=== PATIENT | male | born 1975 | race Caucasian/White ===

== ENCOUNTER 2020-10-29 20:12 | Inpatient (IN) | payer BC ==
[~2020-10-29] VITALS: Ht 180.3 cm; Wt 90.9 kg
[2020-10-29 22:50] LABS: BASOPHILS % (AUTO) 1.3 % (0.0-2.0); EOSINOPHILS % (AUTO) 1.1 % (1.0-6.0); HEMATOCRIT 50.5 % (41-53); HEMOGLOBIN 16.9 g/dL (13.5-17.5); LYMPHOCYTES # (AUTO) 3.6 K/uL (1.0-4.8); LYMPHOCYTES % (AUTO) 22.5 % (22.0-44.0); MEAN CORPUSCULAR HEMOGLOBIN 29.7 pg (26.0-34.0); MEAN CORPUSCULAR HGB CONC 33.5 G/dL (31.0-37.0); MEAN CORPUSCULAR VOLUME 89 fL (80-100); MONOCYTES # (AUTO) 0.6 K/uL (0.1-1.0); MONOCYTES % (AUTO) 3.9 % (2.0-9.0); NEUTROPHILS # (AUTO) 11.4 K/uL (1.8-7.7); NEUTROPHILS % (AUTO) 71.2 % (40.0-70.0); PLATELET COUNT (AUTO) 261 K/uL (150-450); RED BLOOD CELL COUNT(AUTO) 5.69 MIL/uL (4.50-5.90)
[2020-10-29 23:03] LABS: COVID AG,FIA SOURCE NASOPHARYNGEAL
[2020-10-29] MEDS ORDERED: ATOR10TA84 PO (23:05)
[2020-10-29] MEDS ORDERED: LISI-892 PO (23:05)
[2020-10-29 23:06] LABS: ANION GAP 15 mmol/L (8-16); CALCIUM, TOTAL 9.4 mg/dL (8.8-10.5); CARBON DIOXIDE 26 mmol/L (22-29); CHLORIDE 97 mmol/L (98-107); GLOMERULAR FILTR. RATE CALC > 60 mL/min (>60); GLUCOSE,RANDOM 125 mg/dL (70-110); SODIUM SERUM 138 mmol/L (136-145); UREA NITROGEN, BLOOD 6 mg/dL (7-18)
[2020-10-29 23:11] LABS: ALANINE AMINOTRANSFERASE 37 U/L (12-78); ALBUMIN 4.4 g/dL (3.4-5.0); ALKALINE PHOSPHATASE 62 U/L (46-116); ASPARTATE AMINOTRANSFERASE 27 U/L (15-37); BILIRUBIN,TOTAL 0.5 mg/dL (0.1-1.0); TOTAL PROTEIN, SERUM 8.6 g/dL (6.4-8.2)
[2020-10-29 23:14] LABS: AMPHET/METH SCREEN,URINE NEGATIVE (NEGATIVE); BARBITURATE SCREEN, URINE NEGATIVE (NEGATIVE); BENZODIAZEPINES SCREEN,URINE NEGATIVE (NEGATIVE); CANNABINOID SCREEN,URINE NEGATIVE (NEGATIVE); COCAINE SCREEN,URINE NEGATIVE (NEGATIVE); METHADONE SCREEN, URINE NEGATIVE (NEGATIVE); OPIATE SCREEN,URINE NEGATIVE (NEGATIVE)
[2020-10-29] MEDS ORDERED: SODIUM CHLORIDE 0.9% 1,000 ML IV ONE (23:15)
[2020-10-29 23:17] LABS: PHENCYCLIDINE SCREEN,URINE NEGATIVE (NEGATIVE)
[2020-10-29] MEDS ORDERED: ZOLPIDEM TARTRATE 10 MG TABLET PO PRN (23:45)
[2020-10-29] MEDS ORDERED: LORazepam 2 MG TABLET PO PRN (23:45)
[2020-10-29] MEDS ORDERED: OLANZapine 5 MG RAPDIS TABLET PO PRN (23:45)
[2020-10-30] VITALS (8 sets, daily range): BP systolic 130–165; BP diastolic 83–109
[2020-10-30] MEDS ORDERED: SODIUM CHLORIDE 0.9% 1,000 ML IV ONE (01:00)
[2020-10-30 03:06] LABS: APPEARANCE,URINE CLEAR (CLEAR); BILIRUBIN,URINE NEGATIVE (NEGATIVE); GLUCOSE, URINE (UA) NEGATIVE (NEGATIVE); KETONES,URINE 15 mg/dL (NEGATIVE); LEUKOCYTE ESTERASE ,URINE NEGATIVE (NEGATIVE); NITRATE,URINE NEGATIVE (NEGATIVE); OCCULT BLOOD,URINE SMALL (NEGATIVE); PROTEIN,URINE NEGATIVE (NEGATIVE); UROBILINOGEN,URINE 0.2 mg/dL (<=1.0)
[2020-10-30 03:09] LABS: CHOL/HDL RATIO 2.5 (4.2-7.3)
[2020-10-30 03:18] LABS: BACTERIA,URINE None Seen /HPF (None Seen); RBC,URINE 0-2 /HPF (0-2); SQUAMOUS EPITHELIAL CELL,UR None Seen /LPF (None Seen); WBC,URINE None Seen /HPF (0-5)
[2020-10-30] MEDS ORDERED: LISI-893 PO (11:20)
[2020-10-30] MEDS ORDERED: GuaiFENesin/D-METHORPHAN [SUGAR-FREE] 200-20MG/10 ML SYRUP UDCUP PO PRN (11:30)
[2020-10-30] MEDS ORDERED: PROMETHAZINE HCL 25 MG TABLET PO PRN (11:30)
[2020-10-30] MEDS ORDERED: TUBERCULIN, PURIFIED PROTEIN DERIVATIVE 5 TU/0.1 ML SYRINGE ID ONE (11:30)
[2020-10-30] MEDS ORDERED: LORazepam 2 MG TABLET PO ONE (11:30)
[2020-10-30] MEDS ORDERED: CYANOCOBALAMIN 1,000 MCG/ML VIAL IM ONE (11:30)
[2020-10-30] MEDS ORDERED: HydrOXYzine PAMOATE 50 MG CAPSULE PO PRN (11:30)
[2020-10-30] MEDS ORDERED: LOPERAMIDE HCL 2 MG CAPSULE PO PRN (11:30)
[2020-10-30] MEDS ORDERED: LORazepam 2 MG TABLET PO PRN (11:30)
[2020-10-30] MEDS ORDERED: INFLUENZA VIRUS VACCINE QVS 2020-21 (6MO+)/PF 60 MCG/0.5 ML SYRINGE IM ONE (11:45)
[2020-10-30] MEDS ORDERED: CloNIDine HCL 0.1 MG TABLET PO PRN (12:30)
[2020-10-30] MEDS: THIAMINE 100 MG TABLET PO SCH (16:37)
[2020-10-30] MEDS: MELATONIN 5 MG TABLET PO SCH (20:09)
[2020-10-30] MEDS ORDERED: MIRTAZAPINE 15 MG TABLET PO SCH (21:00)
[2020-10-31 03:00] VITALS: BP 139/74
[2020-10-31 07:00] VITALS: BP 138/80
[2020-10-31] MEDS ORDERED: LORazepam 2 MG TABLET PO PRN (07:00)
[2020-10-31] MEDS: THIAMINE 100 MG TABLET PO SCH ×2 (08:35→16:52)
[2020-10-31] MEDS: OMEGA-3/DHA/EPA/FISH OIL 1,000 MG CAPSULE PO SCH (08:35)
[2020-10-31] MEDS: LISINOPRIL 10 MG TABLET PO SCH (08:35)
[2020-10-31] MEDS: LORazepam 2 MG TABLET PO SCH ×4 (08:35→20:31)
[2020-10-31] MEDS: NALTREXONE HCL 50 MG TABLET PO SCH (08:35)
[2020-10-31] MEDS: FOLIC ACID 1 MG TABLET PO SCH (08:35)
[2020-10-31] MEDS: ATORVASTATIN CALCIUM 10 MG TABLET PO SCH (08:35)
[2020-10-31] MEDS: MULTIVITAMINS WITH MINERALS, THERAPEUTIC TABLET PO SCH (08:35)
[2020-10-31 08:47] LABS: LITHIUM < 0.20 mmol/L (0.60-1.20)
[2020-10-31 08:48] LABS: CHOL/HDL RATIO 2.6 (4.2-7.3); CHOLESTEROL 172 mg/dL (131-200); FREE T4 (FREE THYROXINE) 1.18 ng/dL (0.76-1.46); HDL CHOLESTEROL 65 mg/dL (40-60); LDL CHOL (CALC.) 84 mg/dL (0-130); THYROID STIMULATING HORMONE 3.23 uIU/mL (0.36-3.74); TRIGLYCERIDES 114 mg/dL (15-150)
[2020-10-31 08:55] LABS: HEMOGLOBIN A1C 5.9 % (3.8-5.6)
[2020-10-31 09:06] VITALS: BP 149/90
[2020-10-31 13:35] VITALS: BP 140/97
[2020-10-31 16:34] VITALS: BP 136/83
[2020-10-31] MEDS: MELATONIN 5 MG TABLET PO SCH (20:31)
[2020-10-31] MEDS ORDERED: MIRTAZAPINE 30 MG TABLET PO SCH (21:00)
[2020-11-01 06:40] VITALS: BP 134/85
[2020-11-01] MEDS: ATORVASTATIN CALCIUM 10 MG TABLET PO SCH (09:03)
[2020-11-01] MEDS: OMEGA-3/DHA/EPA/FISH OIL 1,000 MG CAPSULE PO SCH (09:03)
[2020-11-01] MEDS: MULTIVITAMINS WITH MINERALS, THERAPEUTIC TABLET PO SCH (09:03)
[2020-11-01] MEDS: FOLIC ACID 1 MG TABLET PO SCH (09:03)
[2020-11-01] MEDS: LORazepam 2 MG TABLET PO SCH ×4 (09:03→20:24)
[2020-11-01] MEDS: LISINOPRIL 10 MG TABLET PO SCH (09:03)
[2020-11-01] MEDS: NALTREXONE HCL 50 MG TABLET PO SCH (09:03)
[2020-11-01] MEDS: THIAMINE 100 MG TABLET PO SCH ×2 (09:03→17:07)
[2020-11-01 10:10] VITALS: BP 146/92
[2020-11-01] MEDS ORDERED: MELA5TAB3 PO (14:47)
[2020-11-01] MEDS ORDERED: OMEG-135 PO (14:47)
[2020-11-01] MEDS ORDERED: MIRT30 PO (14:47)
[2020-11-01] MEDS ORDERED: NALT50TA PO (14:47)
[2020-11-01 16:37] VITALS: BP 141/90
[2020-11-01] MEDS: MELATONIN 5 MG TABLET PO SCH (20:24)
[2020-11-01 20:36] VITALS: BP 136/86
[2020-11-01] MEDS ORDERED: MIRTAZAPINE 30 MG TABLET PO SCH (21:00)
[2020-11-02 06:18] VITALS: BP 147/92
[2020-11-02] MEDS ORDERED: LORazepam 1 MG TABLET PO PRN (07:00)
[2020-11-02] MEDS: LISINOPRIL 10 MG TABLET PO SCH (08:33)
[2020-11-02] MEDS: ATORVASTATIN CALCIUM 10 MG TABLET PO SCH (08:33)
[2020-11-02] MEDS: FOLIC ACID 1 MG TABLET PO SCH (08:33)
[2020-11-02] MEDS: MULTIVITAMINS WITH MINERALS, THERAPEUTIC TABLET PO SCH (08:33)
[2020-11-02] MEDS: THIAMINE 100 MG TABLET PO SCH (08:33)
[2020-11-02] MEDS: NALTREXONE HCL 50 MG TABLET PO SCH (08:33)
[2020-11-02] MEDS: OMEGA-3/DHA/EPA/FISH OIL 1,000 MG CAPSULE PO SCH (08:34)
[2020-11-02 08:58] VITALS: BP 147/90
[2020-11-02] MEDS ORDERED: LORazepam 1 MG TABLET PO SCH (09:00)
[2020-11-02] MEDS ORDERED: MIRT30 PO (09:33)
[2020-11-03] MEDS ORDERED: LORazepam 1 MG TABLET PO PRN (07:00)
== END 2020-11-02 10:00 | disposition home or self-care (01) | DRG 885 ==
LOC: EMS 20:14 → B2S 10-30 08:09
PROVIDERS: ADMIT Psychiatry & Neurology Psychiatry; ATTEND Psychiatry & Neurology Psychiatry
DX: F33.2 Major depressive disorder, recurrent severe without psychotic features (principal); E78.00 Pure hypercholesterolemia, unspecified; I10 Essential (primary) hypertension; F10.10 Alcohol abuse, uncomplicated; Z20.822 Contact with and (suspected) exposure to COVID-19; Z55.9 Problems related to education and literacy, unspecified; Z59.9 Problem related to housing and economic circumstances, unspecified; Z65.3 Problems related to other legal circumstances
CPT/HCPCS: 83036; 84439; 84443; 87426; 99285; A9575; G0480; J3420; J7030